=== PATIENT | female | born 1970 | race Caucasian/White ===

== ENCOUNTER 2017-05-23 19:21 | Emergency (ER) | payer OTHER ==
[2017-05-23] MEDS: DIPHTH/TET/ACEL PERTUSS (ADULT) 0.5 ML VIAL IM* (22:29)
[2017-05-23 22:46] LABS: ADD MAN DIFF? NO
[2017-05-23 22:49] LABS: WHITE BLOOD COUNT 9.6 10^3/ul (4.8-10.8)
[2017-05-23 22:49] LABS: BASOPHILS % 0.4 % (0.0-2.0); HEMATOCRIT 43.4 % (37.0-47.0); HEMOGLOBIN 14.1 g/dl (12.0-16.0); LYMPHOCYTES # 3.8 10^3/ul (0.8-2.9); LYMPHOCYTES % 40.2 % (15.0-51.0); MEAN CORPUSCULAR HGB CONC 32.5 g/dl (32.0-37.0); MEAN CORPUSCULAR VOLUME 79.9 fl (82.0-101.0); MEAN PLATELET VOLUME 9.8 fl (7.4-10.4); MONOCYTE # 0.9 10^3/ul (0.3-0.9); MONOCYTES % 9.5 % (0.0-11.0); NEUTROPHIL # 4.8 10^3/ul (1.6-7.5); NEUTROPHILS % 49.7 % (39.0-77.0); PLATELET COUNT 331 10^3/UL (140-415); RED BLOOD COUNT 5.43 10^6/ul (4.20-5.40)
[2017-05-23 23:07] LABS: INR 1.01; PROTIME 13.4 Sec (11.9-14.9)
[2017-05-23 23:08] LABS: PARTIAL THROMBOPLASTIN TIME 32.6 Sec (25.0-35.0)
== END 2017-05-23 23:39 | disposition home or self-care (01) ==
LOC: FTE 19:21
DX: S20.461A Insect bite (nonvenomous) of right back wall of thorax, initial encounter (principal); L30.4 Erythema intertrigo; I10 Essential (primary) hypertension; R23.3 Spontaneous ecchymoses; W57.XXXA Bitten or stung by nonvenomous insect and other nonvenomous arthropods, initial encounter; Y92.9 Unspecified place or not applicable; Z79.82 Long term (current) use of aspirin; Z23 Encounter for immunization
CPT/HCPCS: 85025; 85610; 85730; 90471; 90715; 99283-25

== ENCOUNTER 2018-11-26 13:23 | Emergency (ER) | payer OTHER ==
[2018-11-26] MEDS ORDERED: ACETAMINOPHEN 325 MG TAB PO (14:30)
[2018-11-26] MEDS: KETOROLAC 60 MG INJ IM (14:37)
[2018-11-26] MEDS: DIPHTH/TET/ACEL PERTUSS (ADULT) 0.5 ML VIAL IM* (15:05)
== END 2018-11-26 15:52 | disposition home or self-care (01) ==
LOC: FTE 13:23
DX: S80.211A Abrasion, right knee, initial encounter (principal); S20.229A Contusion of unspecified back wall of thorax, initial encounter; I10 Essential (primary) hypertension; W22.8XXA Striking against or struck by other objects, initial encounter; Y92.9 Unspecified place or not applicable; Z23 Encounter for immunization; Z79.82 Long term (current) use of aspirin
CPT/HCPCS: 72072; 72100; 81025; 90471; 90715; 96372; 99284-25